=== PATIENT | female | born 1985 | race Caucasian/White ===

== ENCOUNTER 2016-11-12 05:28 | Emergency (ER) | payer MEDICAID ==
[~2016-11-12 05:28] MED LIST: AMPICILLIN PO; BACTRIM DS TABL1 TA1 PO; IBUPROFEN800 MG PO; KEFLEX500 MG PO; NAPROSYN500 MG PO; NO MEDICATIONS; PREDNISONE PO; TYLENOL #3 PO; VOLTAREN75 MG PO
== END 2016-11-12 06:16 | disposition home or self-care (01) ==
LOC: CED 05:28
DX: L02.811 Cutaneous abscess of head [any part, except face] (principal); F17.210 Nicotine dependence, cigarettes, uncomplicated; Z79.899 Other long term (current) drug therapy
CPT/HCPCS: 99282

== ENCOUNTER 2016-12-13 16:28 | Inpatient (IN) | payer MEDICAID ==
--- NOTE | ~2016-12-13 | DS ---
Unit #: [id number] #: [id number] Patient: KETTY BADILLO [id number] [place] [id number] [facility]. [place], [place] [address] [id number] MR#: [id number] NAME: KETTY BADILLO. ROOM: 477 Age: 31 Sex: F Admission Date: 12/13/2016 : 1985 Discharge Date: 12/17/2016 Attending Physician: Sebastian Dominguez M.D. Primary Care Physician: Brenden Mancini M.D. DISCHARGE SUMMARY DIAGNOSIS ON ADMISSION Left cheek and upper lip abscess and cellulitis. DIAGNOSES ON DISCHARGE 1. Left cheek and upper lip abscess secondary to methicillin-resistant Staphylococcus aureus status post incision and drainage. 2. Left posterior leg abscess and cellulitis. 3. Polysubstance abuse. CONSULTATIONS Dr. Larson and group in surgical consultation. PROCEDURES DONE The patient had incision and drainage and debridement done of left upper lip abscess and left posterior calf abscess. DIAGNOSTIC STUDIES LABS: The patient's creatinine is 0.7, sodium 138, potassium 4. WBC is 8.3, hemoglobin 10.1, platelet count 288. Wound cultures were positive for MRSA. Urine culture revealed mixed growth with contaminated specimen. Blood culture did not reveal any growth so far. Urine drug screen was positive for amphetamines and marijuana. IMAGING: Maxillofacial CT scan revealed soft tissue abscess along the right upper lip extending superiorly to the soft tissues overlying the inferior margin of the right maxilla. There was no fracture or bone destruction. Left tibia and fibula x-rays were normal. HOSPITAL COURSE This 31-year-old female was admitted to [facility] with left leg and upper lip abscess. Details are as per admission H and P. Patient was seen by Dr. Larson in consultation who performed I and D. Wound cultures grew MRSA. The patient is doing much better, and Dr. Todd has recommended she can be discharged home. PHYSICAL EXAMINATION VITAL SIGNS: Today, vital signs reveal temperature of 98.2, pulse 60 per minute, respiratory rate 16 per minute and blood pressure 105/63. HEENT: Examination revealed no conjunctival congestion. Sclera is nonicteric. NECK: Neck is supple. Trachea is central. RESPIRATORY: Examination revealed breath sounds equal bilaterally. There Unit #: [id number] #: [id number] Patient: KETTY BADILLO are no wheezes or crackles. HEART: Regular rate and rhythm. S1, S2. ABDOMEN: Abdomen is soft, nontender. Bowel sounds are present in all 4 quadrants. NEUROLOGIC: The patient is alert to person, place and time. Power is 5/5 bilaterally. Sensations are grossly intact. SKIN: Skin is warm and dry. Patient has left posterior calf small wound and right upper lip small wound. RECOMMENDATIONS ON DISCHARGE 1. Condition is stable. 2. Activity is as tolerated. MEDICATIONS 1. Trazodone 50 mg p.o. q.h.s. p.r.n. 2. Bactrim DS 1 p.o. b.i.d. for 1 week. FOLLOW-UP/INSTRUCTIONS 1. The patient is advised to follow up with primary care physician in one week and with surgery as recommended. 2. The patient is advised to call primary care physician or go to ER if her condition changes. 3. The patient is also advised to stop using marijuana and amphetamines, and she said she will do so. Dictated by... Mercedes Shirley TD: 12/17/2016 10:40 JOB #: [id number] DISCHARGE SUMMARY Page 1 of 1 X Sebastian Dominguez MD X DISCHARGE SUMMARY
--- NOTE | ~2016-12-13 | CT99 ---
[facility] A Service of [facility] & [facility] RADIOLOGY TEXT RESULTS PATIENT: KETTY BADILLO LOCATION: [place] [address] : [birth year] UNIT #: [id number] AGE: [address]: Pete Frost MD SEX: F ORDER DR: [id number] [facility] [address] [place], [place] [address] [id number] I MR#: [id number] #: [id number] NAME: KETTY BADILLO. : 1985 SEX: F STUDY DATE/TIME: 12/13/2016 19:17 UNIT: [facility] ROOM: 80997 STUDY DESCRIPTION: CT Maxillofacial Area W Cont Attending Physician: Pete Frost M.D. Ordering Physician: Citlali Harvey M.D. Primary Care Physician: Brenden Mancini M.D. MEDICAL IMAGING REPORT This report is preliminary unless electronic signature is present EXAM CT facial bones with IV contrast. HISTORY Right upper lobe abscess. Right mouth pain, redness and swelling for [address] exam was performed with one or more of the following radiation dose reduction techniques: automatic exposure control, adjustment of mA and/or kV according to patient size, and iterative reconstruction. FINDINGS CT face with IV contrast demonstrates peripherally enhancing subcutaneous fluid collection along the anterolateral margin of the right upper lip, extending anterior to the inferior margin of the right maxilla, with extensive adjacent subcutaneous stranding, and soft tissue thickening. The fluid component measures close to 1.7 cm x 2.0 cm in AP and transverse dimensions and 2.7 cm in craniocaudal dimension, and this is compatible with an abscess, with adjacent cellulitis. Moderate mucosal thickening versus retention cyst in the posterior right maxillary sinus measuring close to 2 cm. No bone destruction. No fracture. IMPRESSION 1. Soft tissue abscess along the anterolateral margin of the right upper lip extending superiorly to the soft tissues overlying the inferior margin of the right maxilla. The abscess measures close to 1.7 cm x 2.0 cm in AP and transverse dimensions and 2.7 cm in craniocaudal dimension, and there is adjacent soft tissue stranding and thickening, likely associated cellulitis. 2. No fracture or bone destruction. [facility]. [facility] A Service of [facility] & [facility] RADIOLOGY TEXT RESULTS PATIENT: KETTY BADILLO LOCATION: [facility] 477-01 : 83 UNIT #: [id number] AGE: [address]: Pete Frost MD SEX: F ORDER DR: Dictated by... Indra Wilcox M.D. THIS IS AN ELECTRONICALLY VERIFIED REPORT Indra Wilcox M.D. at 12/14/2016 11:41 AM RONI/[place] TD: 12/13/2016 23:17 JOB #: [id number] MEDICAL IMAGING REPORT Page 1 of 1 COPY
--- NOTE | ~2016-12-13 | CR252 ---
[facility] A Service of [facility] & [facility] RADIOLOGY TEXT RESULTS PATIENT: KETTY BADILLO LOCATION: [place] [id number] : 83 UNIT #: [id number] AGE: [address]: Pete Frost MD SEX: F ORDER DR: [id number] [facility] [address] [place], [place] [address] [id number] I MR#: [id number] Acc #: [id number] NAME: KETTY BADILLO. : 1985 SEX: F STUDY DATE/TIME: 12/13/2016 17:55 UNIT: [facility] ROOM: 62122 STUDY DESCRIPTION: CR Tibia and Fibula 2 Views Lt Attending Physician: Pete Frost M.D. Ordering Physician: Citlali Harvey M.D. Primary Care Physician: Brenden Mancini M.D. MEDICAL IMAGING REPORT This report is preliminary unless electronic signature is present EXAM Left tibia-fibula AP and lateral HISTORY Leg pain and redness after laceration 3 days ago. FINDINGS There is no evidence of fracture, dislocation, or radiopaque foreign body. IMPRESSION Normal tibia and fibula. Dictated by... Indra Wilcox M.D. THIS IS AN ELECTRONICALLY VERIFIED REPORT Indra Wilcox M.D. at 12/13/2016 11:12 PM DFL/[place] TD: 12/13/2016 22:42 JOB #: [id number] MEDICAL IMAGING REPORT Page 1 of 1 COPY
--- NOTE | ~2016-12-13 | OR ---
Unit #: [id number] #: [id number] Patient: KETTY BADILLO [id number] [address] [place], [place] [address] [id number] I MR#: [id number] NAME: KETTY BADILLO ROOM: 477 Date of Procedure: 12/13/2016 Admission Date: 12/13/2016 Surgeon: Marito Larson Jr., M.D. : 1985 Attending Physician: Pete Frost M.D. Primary Care Physician: Brenden Mancini M.D. OPERATIVE REPORT INDICATIONS FOR PROCEDURE The patient is a 31-year-old white female, who presented with evidence of a large abscess of the upper lip to the right of the midline, and a small superficial abscess of the left lower leg. It was felt these both represent an MRSA abscess, so she is brought to the operating room at this time for incision and drainage, and sharp excisional debridement of these with a #10 and a #15 blade scalpel respectively. She understands the procedure including the risks, including that of scarring and further debridements with recurrence of her infection and consents. PREOPERATIVE DIAGNOSES Large abscess of the upper lip and small abscess approximately 2 cm in diameter of the left posterior calf. ANESTHESIA General with endotracheal intubation. PROCEDURES PERFORMED Incision, drainage, and sharp excisional debridement of the 2 wounds as described above with a #10 and a #15 blade scalpel. DESCRIPTION OF PROCEDURE The patient was positioned in the supine position after being anesthetized and intubated, and was prepped and draped in a routine fashion for incision and drainage, and sharp excisional debridement of her abscess of the upper lip. The central core of the necrotic tissue was then removed with a #10 blade scalpel, and this went deep down towards the alveolar bone. Additional fragments of necrotic tissue were removed with a scalpel, and after all necrotic tissue was removed, hemostasis was achieved with Bovie cautery. The wound was irrigated and then packed with iodoform dressings tightly for hemostasis. The patient was then re-prepped and draped for excision of the small abscess of the skin on the left posterior calf. The area was elliptically excised with approximately 2 cm abscess being found that extended down to the deeper subcutaneous tissue. This excision was done with a #15 blade scalpel. After all necrotic tissue was removed with a scalpel down to the deeper subcutaneous, the wound was irrigated and hemostasis was achieved with Bovie cautery, and the wound was packed with saline moist dry dressings. Sterile dressings were applied externally along with a 4 inch Gregory bandage. Estimated blood loss for both procedures were less than 20 mL. The patient received less than a 1000 mL crystalloid solution during the procedure. Sponges and instrument counts were correct x3. No drains were Unit #: [id number] #: [id number] Patient: KETTY BADILLO used. No complications. The patient was taken to the recovery room with stable vital signs in satisfactory condition. Dictated by... Marito Larson Jr., MCecilia DIANA/meme TD: 12/14/2016 12:34 JOB #: [id number] OPERATIVE REPORT Page 1 of 1 X Marito Larson MD X PROCEDURE OPERATIVE NOTE
--- NOTE | ~2016-12-13 | HP ---
Unit #: [id number] #: [id number] Patient: KETTY BADILLO [id number] [place], [place] [address] [id number] MR#: [id number] NAME: KETTY BADILLO. ROOM: 477 Age: 31 Sex: F Admission Date: 12/13/2016 : 1985 Attending Physician: Pete Frost M.D. Primary Care Physician: Brenden Mancini M.D. HISTORY AND PHYSICAL CHIEF COMPLAINT Right cheek, right lip and left leg redness, abscess. HISTORY OF PRESENT ILLNESS This is a 31-year-old female with an insignificant past medical history except for history of marijuana and amphetamine use. She presented to the emergency room with a chief complaint of having right upper lip swelling and redness and also left leg calf site redness which started with symptoms three to four days ago and progressively got worse. She came to the emergency room. She was found to be tachycardic at 130. She was found to have a white count of 16,000. On further workup on CT scan it shows lip abscess with cellulitis. She has eventually been admitted. She denies fever, chills, nausea, vomiting, diarrhea, constipation or any other complaint. PAST MEDICAL HISTORY Insomnia. PAST SURGICAL HISTORY Surgery for tubal . SOCIAL HISTORY She smokes one pack per day. She drinks alcohol rarely. She said she uses pot regularly, methamphetamine also she uses every other day. HOME MEDICATIONS Trazodone for sleep on a p.r.n. basis. REVIEW OF SYSTEMS All review of systems negative except as per history of present illness. PHYSICAL EXAMINATION GENERAL: Middle-aged female lying in the bed comfortably. Currently not in any distress. She is alert, awake and oriented times three. VITALS: Currently, temperature 99.2, heart rate 130, respiratory rate 18, blood pressure 118/77, oxygen saturation 100% on room air. HEENT: Pupils equal and reactive to light and accommodation. Head is normocephalic, atraumatic. Upper lip and cheek area, right upper lip hard, indurated, positive fluctuation. Also on the right side cheek positive redness. NECK: Supple. No jugular venous distension. LUNGS: Clear to auscultation bilaterally. No rhonchi. No wheezing. HEART: S1 and S2. Regular rate and rhythm. ABDOMEN: Soft, nontender and nondistended. Bowel sounds positive. Unit #: [id number] #: [id number] Patient: KETTY BADILLO EXTREMITIES: Left lower leg calf area positive also for redness, hard, indurated area. NEUROLOGIC: No focal neurological deficits. DIAGNOSTIC STUDIES IMAGING: CT scan of the face which shows abscess of the right upper lip. No fracture. No bone destruction. LABORATORY: Urine toxicology positive for amphetamine, marijuana. Urinalysis is consistent with urinary tract infection. Positive cloudy appearance. White blood cell count 10-25. CBC, white count 16, hemoglobin 12, hematocrit 37, platelets 342. Chemistry, sodium 133, potassium 3.4, chloride 98, glucose 96, BUN 5, creatinine 0.8, lactic acid level 1. ASSESSMENT/PLAN 1. Right upper lip abscess. Right cheek abscess and cellulitis. 2. Left leg cellulitis/abscess. Will start the patient on IV Zosyn, vancomycin. 3. Urinary tract infection. 4. Tobacco abuse. 5. Marijuana and methamphetamine abuse. 6. DVT prophylaxis. Will place the patient on SCDs. 7. Mild hypokalemia. Replace. Dictated by Mercedes Carter TD: 12/14/2016 08:55 JOB #: [id number] HISTORY AND PHYSICAL Page 1 of 1 X X HISTORY AND PHYSICAL
[2016-12-13 18:08] LABS: BASOPHIL# 0.1 X10e3 (0-0.3); BASOPHIL% 0.4 % (0-2.5); EOSINOPHIL# 0.3 X10e3 (0-0.7); EOSINOPHIL% 1.6 % (0.0-7.0); HEMATOCRIT 37.8 % (35.0-45.0); HEMOGLOBIN 12.4 gm/dL (12.0-16.0); LYMPHOCYTE# 1.5 X10e3 (1.0-3.5); LYMPHOCYTE% 9.2 % (17.0-45.0); MEAN CELL VOLUME 94.4 FL (83-96); MEAN CORPUSCULAR HGB CONC 32.9 g/dL (30-36); MONOCYTE# 0.7 X10e3 (0-1.0); MONOCYTE% 4.5 % (3.0-12.0); NEUTROPHIL# 13.8 X10e3 (1.5-7.1); NEUTROPHIL% 84.3 % (40-75); PLATELET COUNT 342 X10e3 (140-420); RED CELL DISTRIBUTION WIDTH 14.1 % (11.0-15.5); WHITE BLOOD COUNT 16.3 X10e3 (4.0-10.5)
[2016-12-13 18:12] LABS: DIFF IND YES
[2016-12-13 18:32] LABS: BUN/CREATININE RATIO 6.25; CALCIUM SERUM 8.8 mg/dL (8.4-10.2); CREATININE SERUM 0.8 mg/dL (0.6-1.4); POTASSIUM 3.4 mmol/L (3.5-5.1)
[2016-12-13 18:41] LABS: ANISOCYTOSIS SL; PLATELET ESTIMATE NORMAL (NORMAL)
[2016-12-13 18:54] LABS: URINE SOURCE CLEAN CATCH
[2016-12-13 19:04] LABS: URINE APPEARANCE CLOUDY; URINE BILIRUBIN NEG (NEG); URINE BLOOD TRACE (NEG); URINE COLOR YELLOW; URINE GLUCOSE NEG (NEG); URINE KETONE NEG (NEG); URINE LEUKOCYTE ESTERASE 1+ (NEG); URINE NITRATE NEG (NEG); URINE PH 6.5 (5-8); URINE PROTEIN NEG (NEG); URINE SPECIFIC GRAVITY 1.016 (1.003-1.035)
[2016-12-13 19:07] LABS: CULTURE INDICATED? YES; URBCS1 AUWI 0-2 /[HPF] (0-2); URINE BACTERIA AUWI 2+ (NEGATIVE); URINE SQUAMOUS EPITHELIAL CELL MOD /[HPF]
[2016-12-13 19:15] LABS: AMPHETAMINE POS (NEG); BARBITURATES NEG (NEG); BENZODIAZEPINES NEG (NEG); COCAINE NEG (NEG); MARIJUANA POS (NEG); OPIATES NEG (NEG); TRICYCLIC ANTIDEPRESSANTS NEG (NEG); U METHADONE NEG (NEG)
[2016-12-13] MEDS ORDERED: DESYREL50 MG PO (19:52)
[2016-12-15 03:22] LABS: BASOPHIL% 0.6 % (0-2.5); EOSINOPHIL# 0.7 X10e3 (0-0.7); EOSINOPHIL% 7.9 % (0.0-7.0); HEMATOCRIT 30.3 % (35.0-45.0); LYMPHOCYTE# 2.1 X10e3 (1.0-3.5); LYMPHOCYTE% 25.7 % (17.0-45.0); MEAN CELL VOLUME 94.1 FL (83-96); MEAN CORPUSCULAR HEMOGLOBIN 31.5 PG (28-34); MEAN CORPUSCULAR HGB CONC 33.5 g/dL (30-36); MEAN PLATELET VOLUME 7.5 FL (6.5-11.5); MONOCYTE# 0.5 X10e3 (0-1.0); MONOCYTE% 5.9 % (3.0-12.0); NEUTROPHIL% 59.9 % (40-75); PLATELET COUNT 288 X10e3 (140-420); RED BLOOD COUNT 3.22 X10e (3.90-5.30); RED CELL DISTRIBUTION WIDTH 14.5 % (11.0-15.5); WHITE BLOOD COUNT 8.3 X10e3 (4.0-10.5)
[2016-12-15 03:23] LABS: DIFF IND NO; HEMOGLOBIN 10.1 gm/dL (12.0-16.0)
[2016-12-15 03:40] LABS: BUN/CREATININE RATIO 11.66; CALCIUM SERUM 7.8 mg/dL (8.4-10.2); CREATININE SERUM 0.6 mg/dL (0.6-1.4); GLOM FILT RATE Estimated 119.8 mL/min (>60)
[2016-12-16 10:57] LABS: BUN/CREATININE RATIO 7.14; CALCIUM SERUM 8.5 mg/dL (8.4-10.2); CREATININE SERUM 0.7 mg/dL (0.6-1.4); GLOM FILT RATE Estimated 113.8 mL/min (>60)
[2016-12-17] MEDS ORDERED: BACTRIM DS TAB1 EACH PO (10:52)
== END 2016-12-17 15:57 | disposition home or self-care (01) | DRG 571 ==
LOC: CED 16:28 → CEDOF 20:45 → C4C 20:45 → CEDOF 23:35 → C4C 23:35
PROVIDERS: Internal Medicine; Student in an Organized Health Care Education/Training Program
PROC: 0JB10ZZ Excision of Face Subcutaneous Tissue and Fascia, Open Approach (ICD-10-PCS; principal; 2016-12-13)
PROC: 0JBP0ZZ Excision of Left Lower Leg Subcutaneous Tissue and Fascia, Open Approach (ICD-10-PCS; 2016-12-13)
DX: L02.416 Cutaneous abscess of left lower limb (principal); N39.0 Urinary tract infection, site not specified; L02.01 Cutaneous abscess of face; L03.211 Cellulitis of face; K13.0 Diseases of lips; L03.116 Cellulitis of left lower limb; B95.62 Methicillin resistant Staphylococcus aureus infection as the cause of diseases classified elsewhere; F12.10 Cannabis abuse, uncomplicated; F15.10 Other stimulant abuse, uncomplicated; F17.210 Nicotine dependence, cigarettes, uncomplicated; E87.6 Hypokalemia
CPT/HCPCS: 36415; 70487; 73590; 80048; 80202; 80307; 81003; 83605; 84703; 85025; 87040; 87070; 87075; 87086; 87186; 87205; 96365; 96375; 99285; J0330; J1885; J2270; J2543; J2710; J3010; J3370; Q9967